=== PATIENT | male | born 1995 | race Caucasian/White ===

== ENCOUNTER 2016-09-04 02:25 | Emergency (ER) | payer BC, MEDICAID ==
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
[2016-09-04] MEDS ORDERED: Magnesium Oxide 400 MG Tab PO ONE (04:03)
[2016-09-04] MEDS ORDERED: LORazepam 0.5 MG Tab PO ONE (04:08)
[2016-09-04 04:16] VITALS: BP 133/81
== END 2016-09-04 04:28 | disposition home or self-care (01) ==
LOC: JP.ED 02:25
DX: F41.9 Anxiety disorder, unspecified (principal); E61.2 Magnesium deficiency; Z88.2 Allergy status to sulfonamides; Z88.1 Allergy status to other antibiotic agents; Z79.899 Other long term (current) drug therapy; Z98.890 Other specified postprocedural states; Z87.891 Personal history of nicotine dependence
CPT/HCPCS: 36415; 80048; 83735; 85025; 93005; 99284; A9270

== ENCOUNTER 2016-09-11 18:04 | Emergency (ER) | payer MEDICAID ==
[2016-09-11 19:08] VITALS: BP 130/81
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
== END 2016-09-11 20:16 | disposition home or self-care (01) ==
LOC: JP.ED 18:04
DX: R00.2 Palpitations (principal); K52.9 Noninfective gastroenteritis and colitis, unspecified; E83.42 Hypomagnesemia; R74.8 Abnormal levels of other serum enzymes; F41.0 Panic disorder [episodic paroxysmal anxiety]; F32.9 Major depressive disorder, single episode, unspecified; Z96.22 Myringotomy tube(s) status; Z98.890 Other specified postprocedural states; Z79.899 Other long term (current) drug therapy; Z88.0 Allergy status to penicillin; Z88.1 Allergy status to other antibiotic agents; Z88.2 Allergy status to sulfonamides; Z88.8 Allergy status to other drugs, medicaments and biological substances
CPT/HCPCS: 36415; 80053; 83735; 85027; 93005; 99285-25

== ENCOUNTER 2017-01-01 17:12 | Emergency (ER) | payer MEDICAID ==
[2017-01-01 17:23] VITALS: BP 156/97
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
== END 2017-01-01 17:52 | disposition home or self-care (01) ==
LOC: JP.ED 17:12
DX: F41.0 Panic disorder [episodic paroxysmal anxiety] (principal); H54.7 Unspecified visual loss; F41.9 Anxiety disorder, unspecified; F32.9 Major depressive disorder, single episode, unspecified; K21.9 Gastro-esophageal reflux disease without esophagitis; Z98.890 Other specified postprocedural states; Z88.2 Allergy status to sulfonamides; Z88.1 Allergy status to other antibiotic agents; Z88.0 Allergy status to penicillin
CPT/HCPCS: 99283

== ENCOUNTER 2017-02-24 15:35 | Emergency (ER) | payer MEDICAID ==
[2017-02-24 16:27] VITALS: BP 157/79
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
== END 2017-02-24 17:34 | disposition home or self-care (01) ==
LOC: JP.ED 15:35
DX: N45.1 Epididymitis (principal); K21.9 Gastro-esophageal reflux disease without esophagitis; Z88.1 Allergy status to other antibiotic agents; Z88.2 Allergy status to sulfonamides; Z88.0 Allergy status to penicillin; Z98.890 Other specified postprocedural states
CPT/HCPCS: 99284

== ENCOUNTER 2019-07-24 13:58 | Emergency (ER) | payer MEDICAID ==
[2019-07-24 14:21] VITALS: BP 127/79; PULSE 100
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
--- NOTE | 2019-07-24 15:26 | CRLCT ---
Indication: Trauma Technique: CT of the head without contrast. Coronal and sagittal reformats. Bone and soft tissue windows. Comparison: No prior studies available for comparison at this institution. Findings: No acute intracranial hemorrhage or extra-axial collection. No evidence of acute cortical infarction. No mass effect or midline shift. Normal cerebral volume. The ventricles are normal in size, shape and contour. There is normal cox and white matter differentiation. The orbital contents are normal. No calvarial fractures. No lytic or sclerotic osseous lesions within the calvarium or skull base. Scalp and other imaged soft tissue structures are normal. Mastoid air cells are clear. Paranasal sinuses are well aerated. Impression: No acute intracranial abnormality. Please note that all CT scans at this facility use dose modulation, iterative reconstruction, and/or weight-based dosing when appropriate to reduce radiation dose to as low as reasonably achievable. Dictated by Dougie Morel MD @ Jul 24 2019 3:18PM Signed by Dr. Dougie Morel @ Jul 24 2019 3:24PM
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
== END 2019-07-24 15:20 | disposition home or self-care (01) ==
LOC: JP.ED 13:58
DX: S00.03XA Contusion of scalp, initial encounter (principal); S00.83XA Contusion of other part of head, initial encounter; S60.221A Contusion of right hand, initial encounter; Z88.1 Allergy status to other antibiotic agents; Z88.2 Allergy status to sulfonamides; Z88.0 Allergy status to penicillin; Z88.6 Allergy status to analgesic agent; Y04.0XXA Assault by unarmed brawl or fight, initial encounter
CPT/HCPCS: 70450; 73130-RT; 99284-25

== ENCOUNTER 2019-12-31 06:06 | Emergency (ER) | payer MEDICAID ==
[2019-12-31 06:17] VITALS: BP 157/60
[2019-12-31 06:22] VITALS: PULSE 88
[2019-12-31] MEDS ORDERED: Albuterol/Ipratropium 3.0-0.5 MG/3 ML Neb Soln NEB ONE (06:32)
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
== END 2019-12-31 06:47 | disposition home or self-care (01) ==
LOC: JP.ED 06:06
DX: J45.21 Mild intermittent asthma with (acute) exacerbation (principal); Z88.6 Allergy status to analgesic agent; Z88.0 Allergy status to penicillin
CPT/HCPCS: 99284-25; J7620-GY

== ENCOUNTER 2020-11-08 00:21 | Emergency (ER) | payer MEDICAID ==
[2020-11-08] MEDS ORDERED: Albuterol/Ipratropium 3.0-0.5 MG/3 ML Neb Soln NEB ONE (00:40)
[2020-11-08] MEDS ORDERED: Albuterol/Ipratropium 3.0-0.5 MG/3 ML Neb Soln ONE (00:47)
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
[2020-11-08 04:45] VITALS: BP 156/91; PULSE 103
== END 2020-11-08 01:08 | disposition home or self-care (01) ==
LOC: JP.ED 00:21
DX: J45.21 Mild intermittent asthma with (acute) exacerbation (principal); Z88.1 Allergy status to other antibiotic agents; Z88.2 Allergy status to sulfonamides; Z88.0 Allergy status to penicillin; Z88.6 Allergy status to analgesic agent; Z87.891 Personal history of nicotine dependence
CPT/HCPCS: 94640; 99284-25; J7620-GY

== ENCOUNTER 2021-03-27 19:20 | Emergency (ER) | payer MEDICAID ==
[2021-03-27 20:01] VITALS: BP 123/81; PULSE 112
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
--- NOTE | 2021-03-27 21:02 | CRLCR ---
For Patients: As a result of the Cures Act, medical imaging exams and procedure reports are released immediately into your electronic medical record. You may view this report before your referring provider. If you have questions, please contact your health care provider. Indication: Large toe injury Technique: Three views of the left foot Comparison: None Findings: There is no evidence of acute fracture or joint dislocation. The soft tissues of the foot are grossly unremarkable. Impression: No acute abnormality. Dictated by Dawn Schrader MD @ 03/27/2021 9:01:42 PM (Electronically Signed)
== END 2021-03-27 20:53 | disposition home or self-care (01) ==
LOC: JP.ED 19:20
DX: S90.112A Contusion of left great toe without damage to nail, initial encounter (principal); Z88.0 Allergy status to penicillin; Z88.2 Allergy status to sulfonamides; Z88.1 Allergy status to other antibiotic agents; Z72.0 Tobacco use; W20.8XXA Other cause of strike by thrown, projected or falling object, initial encounter
CPT/HCPCS: 73630-LT; 99283

== ENCOUNTER 2022-04-27 04:27 | Emergency (ER) | payer MEDICAID ==
[2022-04-27 04:38] VITALS: BP 150/100; PULSE 105
== END 2022-04-27 05:07 | disposition home or self-care (01) ==
LOC: JP.ED 04:27
DX: H65.92 Unspecified nonsuppurative otitis media, left ear (principal); H69.82 Other specified disorders of Eustachian tube, left ear; K21.9 Gastro-esophageal reflux disease without esophagitis; Z79.899 Other long term (current) drug therapy; Z88.6 Allergy status to analgesic agent; Z88.1 Allergy status to other antibiotic agents; Z88.0 Allergy status to penicillin; Z88.2 Allergy status to sulfonamides
CPT/HCPCS: 99282

== ENCOUNTER 2023-09-03 02:20 | Emergency (ER) | payer SELFPAY ==
[2023-09-03 02:34] VITALS: BP 142/74; PULSE 80
[2023-09-03 02:44] LABS: BASOPHILS ABSOLUTE AUTO 0.09 K/uL (0.00-0.10); BASOPHILS PERCENT AUTO 1.1 % (0.1-1.3); EOSINOPHILS ABSOLUTE AUTO 0.47 K/uL (0.00-0.40); EOSINOPHILS PERCENT AUTO 5.9 % (0.0-5.4); HEMATOCRIT 41.3 % (38.4-49.7); HEMOGLOBIN 14.4 g/dL (12.9-16.9); IMMATURE GRAN PERCENT AUTO 0.3 % (0.0-0.7); LYMPHOCYTES ABSOLUTE AUTO 2.91 K/uL (0.8-3.3); LYMPHOCYTES PERCENT AUTO 36.8 % (11.4-47.7); MEAN CORPUSCULAR HGB CONC 34.9 g/dL (31.6-35.5); MEAN CORPUSCULAR VOLUME 83.1 fL (81.4-99.0); MONOCYTES ABSOLUTE AUTO 0.58 K/uL (0.20-0.90); MONOCYTES PERCENT AUTO 7.3 % (3.3-12.6); NEUTROPHILS ABSOLUTE AUTO 3.83 K/uL (1.0-7.6); NEUTROPHILS PERCENT AUTO 48.6 % (40.0-78.1); PLATELET COUNT,PLT 299 K/uL (130-375); RED BLOOD CELL COUNT 4.97 M/uL (4.14-5.76); WHITE BLOOD CELL COUNT,WBC 7.9 K/uL (3.2-11.0)
[2023-09-03] MEDS: Alum Hydrox/Mag Hydrox/Simeth 15 ML, Lidocaine 2% 15 ML PO ONE ×2 (02:48→03:39)
[2023-09-03 02:49] LABS: IMMATURE GRAN ABSOLUTE AUTO 0.02 K/uL (0.00-0.23)
[2023-09-03 03:09] LABS: A/G RATIO 1.2 (1.2-2.2); ALANINE AMINOTRANSFERASE,ALT 88 U/L (12-78); ALBUMIN 3.9 g/dL (3.4-5.0); ALKALINE PHOSPHATASE 148 U/L (46-116); ANION GAP 12.7 mmol/L (5.0-14.0); ASPARTATE AMNIOTRANSFERASE,AST 26 U/L (15-37); BILIRUBIN TOTAL 0.4 mg/dL (0.2-1.0); BLOOD UREA NITROGEN,BUN 13 mg/dL (7-18); CALCIUM 9.2 mg/dL (8.5-10.1); CARBON DIOXIDE,CO2 26 mmol/L (21-32); CHLORIDE,CL 103 mmol/L (100-108); EST CRCL DRUG DOSING (CG) 117.13 mL/min; ESTIMATED GFR 105 mL/min (>60); GLUCOSE RANDOM 118 mg/dL (74-106); POTASSIUM,K 3.7 mmol/L (3.6-5.2); PROTEIN TOTAL,TP 7.1 g/dL (6.4-8.2); SODIUM,NA 142 mmol/L (140-148)
[2023-09-03] MEDS: Pantoprazole 40 MG Tab.CR PO ONE (03:15)
== END 2023-09-03 03:56 | disposition home or self-care (01) ==
LOC: JP.ED 02:20
DX: K21.9 Gastro-esophageal reflux disease without esophagitis (principal); Z79.899 Other long term (current) drug therapy; Z88.0 Allergy status to penicillin; Z88.6 Allergy status to analgesic agent; Z88.1 Allergy status to other antibiotic agents; Z88.2 Allergy status to sulfonamides
CPT/HCPCS: 36415; 80053; 84484; 85025; 93005; 99285; A9270; 99283